=== PATIENT | male | born 1955 | race Caucasian/White ===

== ENCOUNTER 2018-07-08 08:56 | Emergency (ER) | payer OTHER ==
[~2018-07-08] VITALS: Ht 193 cm; Wt 95.2 kg
[~2018-07-08 08:56] MED LIST: AZIT250 PO; CITA20 PO; CLON1 PO; CLON2 PO; HYDACE10B PO; IBUP800 PO; METH10 PO; METH40 PO; NAPR500 PO
== END 2018-07-08 11:45 | disposition home or self-care (01) ==
LOC: ER 08:56 → MEDS 09:45 → ER 11:45
DX: Z00.00 Encounter for general adult medical examination without abnormal findings (principal); F17.210 Nicotine dependence, cigarettes, uncomplicated
CPT/HCPCS: 93005; 93010; 99283-25

== ENCOUNTER → 2019-07-07 | Outpatient (CLI) | payer OTHER | END | disposition home or self-care (01) | LOC: LAB SHORT 06:00 → OLS 06:00 | DX: A15.9 Respiratory tuberculosis unspecified (principal) | CPT/HCPCS: 87015; 87116; 87206 ==

== ENCOUNTER 2020-03-04 09:50 | Emergency (ER) | payer OTHER ==
[~2020-03-04] VITALS: Ht 193 cm; Wt 99.8 kg
[2020-03-04 11:45] LABS: BASOPHILS ABSOLUTE AUTO 0.08 K/mm3 (0.00-0.23); BASOPHILS PERCENT AUTO 1 % (0-2); EOSINOPHILS ABSOLUTE AUTO 0.44 K/mm3 (0.00-0.68); EOSINOPHILS PERCENT AUTO 5 % (0-6); Hematocrit 43.8 % (37.0-53.0); Hemoglobin 14.1 g/dL (13.5-17.5); IMMATURE GRAN ABSOLUTE AUTO 0.07 K/mm3 (0.00-0.10); IMMATURE GRAN PERCENT AUTO 1 % (0-1); LYMPHOCYTES ABSOLUTE AUTO 1.97 K/mm3 (0.84-5.20); LYMPHOCYTES PERCENT AUTO 20 % (21-46); MONOCYTES ABSOLUTE AUTO 0.85 K/mm3 (0.16-1.47); MONOCYTES PERCENT AUTO 9 % (4-13); Mean Corpuscular HGB 28.1 pg (26.0-34.0); Mean Corpuscular HGB Conc 32.2 g/dL (31.5-36.5); Mean Corpuscular Volume 87 fL (80-100); Mean Platelet Volume 9.8 fL (9.1-12.4); NEUTROPHILS ABSOLUTE AUTO 6.26 K/mm3 (1.96-9.15); NEUTROPHILS PERCENT AUTO 65 % (41-73); Platelet Count 232 K/mm3 (150-400); RDW Coefficient Variation 14.6 % (11.7-14.2); RDW Standard Deviation 46.9 fL (35.1-46.3); Red Blood Cell Count 5.01 M/mm3 (4.30-5.90); White Blood Cell Count 9.67 K/mm3 (4.00-11.30)
[2020-03-04 12:05] LABS: Alanine Aminotransfer (ALT/SGP 23 U/L (12-78); Albumin, Blood 3.3 g/dL (3.4-5.0); Albumin/Globulin Ratio 0.8 (0.8-1.8); Alk Phos 92 U/L (50-136); Anion Gap 2 mmol/L (6-16); Aspartate Aminotrans (AST/SGOT 18 U/L (12-37); Bilirubin, Total 0.6 mg/dL (0.1-1.0); Blood Urea Nitrogen 15 mg/dL (8-24); Bun/Creatinine Ratio 22.4 (12.0-20.0); CO2, Blood 31 mmol/L (21-32); Calcium, Blood 8.9 mg/dL (8.5-10.1); Chloride, Blood 105 mmol/L (98-108); Creatinine, Blood 0.67 mg/dL (0.60-1.20); Globulin, Blood 4.2 g/dL (2.2-4.0); Glomerular Filtration Rate >60 (60-); Glucose, Blood 101 mg/dL (70-99); Potassium, Blood 4.1 mmol/L (3.5-5.5); Sodium, Blood 138 mmol/L (136-145); Total Protein, Blood 7.5 g/dL (6.4-8.2)
[2020-03-04 12:28] LABS: Influenza A, PCR Negative (NEGATIVE); Influenza B, PCR Negative (NEGATIVE); Resp Syncytial Virus, PCR Negative (NEGATIVE); SARS-Cov-2 (COVID-19) PCR, MMC Negative (NEGATIVE)
== END 2020-03-04 13:01 | disposition home or self-care (01) ==
LOC: ER 09:50
PROVIDERS: Emergency Medicine
DX: R06.00 Dyspnea, unspecified (principal); J44.9 Chronic obstructive pulmonary disease, unspecified; Z20.828 Contact with and (suspected) exposure to other viral communicable diseases; Z79.891 Long term (current) use of opiate analgesic
CPT/HCPCS: 0241U; 71045; 80053; 85025; 99284-25

== ENCOUNTER 2021-02-21 22:05 | Inpatient (IN) | payer OTHER ==
[~2021-02-21] VITALS: Ht 193 cm; Wt 108.3 kg
[2021-02-21] MEDS ORDERED: ANORO ELLIPTA1 EACH INH (23:09)
[2021-02-21] MEDS ORDERED: ALBU90OI INH (23:09)
[2021-02-21] MEDS ORDERED: ATOR10 PO (23:10)
[2021-02-21] MEDS ORDERED: METF500 PO (23:10)
[2021-02-21 23:14] LABS: BASOPHILS ABSOLUTE AUTO 0.09 K/mm3 (0.00-0.23); BASOPHILS PERCENT AUTO 1 % (0-2); EOSINOPHILS ABSOLUTE AUTO 0.08 K/mm3 (0.00-0.68); EOSINOPHILS PERCENT AUTO 1 % (0-6); Hematocrit 41.6 % (37.0-53.0); Hemoglobin 13.5 g/dL (13.5-17.5); IMMATURE GRAN PERCENT AUTO 1 % (0-1); LYMPHOCYTES ABSOLUTE AUTO 1.69 K/mm3 (0.84-5.20); LYMPHOCYTES PERCENT AUTO 12 % (21-46); MONOCYTES ABSOLUTE AUTO 1.39 K/mm3 (0.16-1.47); MONOCYTES PERCENT AUTO 10 % (4-13); Mean Corpuscular HGB 28.3 pg (26.0-34.0); Mean Corpuscular HGB Conc 32.5 g/dL (31.5-36.5); Mean Corpuscular Volume 87 fL (80-100); Mean Platelet Volume 10.9 fL (9.1-12.4); NEUTROPHILS PERCENT AUTO 77 % (41-73); Platelet Count 269 K/mm3 (150-400); RDW Coefficient Variation 15.2 % (11.7-14.2); RDW Standard Deviation 48.6 fL (35.1-46.3); Red Blood Cell Count 4.77 M/mm3 (4.30-5.90); White Blood Cell Count 14.65 K/mm3 (4.00-11.30)
[2021-02-21 23:33] LABS: Alanine Aminotransfer (ALT/SGP 31 U/L (12-78); Albumin, Blood 3.4 g/dL (3.4-5.0); Albumin/Globulin Ratio 0.8 (0.8-1.8); Alk Phos 81 U/L (50-136); Anion Gap 5 mmol/L (6-16); Aspartate Aminotrans (AST/SGOT 20 U/L (12-37); Blood Urea Nitrogen 21 mg/dL (8-24); Bun/Creatinine Ratio 24.2 (12.0-20.0); CO2, Blood 30 mmol/L (21-32); Calcium, Blood 10.2 mg/dL (8.5-10.1); Chloride, Blood 100 mmol/L (98-108); Creatinine, Blood 0.87 mg/dL (0.60-1.20); Globulin, Blood 4.3 g/dL (2.2-4.0); Glomerular Filtration Rate >60 (60-); Glucose, Blood 120 mg/dL (70-99); Potassium, Blood 4.9 mmol/L (3.5-5.5); Sodium, Blood 135 mmol/L (136-145); Total Protein, Blood 7.7 g/dL (6.4-8.2)
[2021-02-21 23:55] LABS: Magnesium, Blood 1.7 mg/dL (1.6-2.4); Troponin I <0.015 ng/mL (0.000-0.040)
[2021-02-22 01:17] LABS: Influenza A, PCR NEGATIVE (NEGATIVE); Influenza B, PCR NEGATIVE (NEGATIVE); Resp Syncytial Virus, PCR NEGATIVE (NEGATIVE); SARS-Cov-2 (COVID-19) PCR, MMC NEGATIVE (NEGATIVE)
[2021-02-22 01:25] LABS: Source, Urine Clean Catch
[2021-02-22 01:31] LABS: Bilirubin, Urine Neg (Neg); Blood, Urine Neg (Neg); Glucose Qualitative, Urine Neg (Neg); Ketones, Urine 1+ (Neg); Leukocyte Esterase, Urine Neg (Neg); Nitrite, Urine Neg (Neg); Protein, Urine 1+ (Neg); Urobilinogen, Urine NORM (Normal)
[2021-02-22 01:32] LABS: Appearance, Urine Clear (Clear); Color, Urine Yellow (P-Yellow)
--- NOTE | 2021-02-22 07:10 | NUR ---
SHIFT SUMMARY PT ALERT AND ORIENTED X4. ON 6L NC, SATS OVER 88%. HR AFIB 90'S. BP STABLE. PT C/O 10/13 CHRONIC BACK PAIN. PT ROCIO CHEST PAIN. FLU SHOT GIVEN. RIGHT AND LEFT IV ACCESS SALINE LOCKED. INDEPENDENT FOR ADLS. IN BED WATCHING TV WITH CALL ALARM AT SIDE
--- NOTE | 2021-02-22 14:21 | NUR ---
HELPFUL AT BEDSIDE, AND PATIENT EDUCATED ON THE EFFECTS OF SOLUMEDROL AND ALBUTEROL, REPORTED TO DR JOYCE MAYER WISHES OF ONLY WANTING THE ANORO INHALER, PATIENT ALREADY ON ALBUTEROL TX
[2021-02-22 15:14] LABS: U Methadone Screen DETECTED; U Methamphetamine Screen DETECTED
[2021-02-22 15:15] LABS: U Amphetamine Screen DETECTED; U Barbituate Screen Not Detected; U Benzodiazapine Screen Not Detected; U Buprenorphine Screen Not Detected; U Cannabinoids Screen Not Detected; U Cocaine Screen Not Detected; U Opiates Screen DETECTED; U Oxycodone Screen Not Detected; U Phencyclidine Screen Not Detected; U Propoxyphene Screen Not Detected
--- NOTE | 2021-02-22 18:21 | NUR ---
MAKES NEEDS KNOWN, BECOMES ANXIOUS, DEMANDING, AND IRRITABLE. pATIENT WANTED METHADONE DOSE INCREASED TODAY, NO INCREASES MADE PER DR CARL, MEDICATED WITH ATIVAN AND LASIX, PATIENT IN THE ADAPT METHADONE PROGRAM, UDS SENT RESULTS POSITIVE, VS REVIEWED, BED ALARM ON, NURSING SUPERVISORS AWARE, PATIENT THREATENED TO LEAVE IF HE WAS NOT GIVEN A HIGHER DOSE OF METHADONE, PATIENT AGREED TO STAY IF HE HAD SOMETHING FOR ANXIETY, CALL LIGHT WITH IN REACH, WILL RELAY TO PM RN
[2021-02-23 03:45] LABS: BASOPHILS ABSOLUTE AUTO 0.04 K/mm3 (0.00-0.23); BASOPHILS PERCENT AUTO 0 % (0-2); EOSINOPHILS PERCENT AUTO 0 % (0-6); Hematocrit 41.1 % (37.0-53.0); Hemoglobin 13.2 g/dL (13.5-17.5); IMMATURE GRAN ABSOLUTE AUTO 0.17 K/mm3 (0.00-0.10); IMMATURE GRAN PERCENT AUTO 1 % (0-1); LYMPHOCYTES ABSOLUTE AUTO 2.22 K/mm3 (0.84-5.20); LYMPHOCYTES PERCENT AUTO 11 % (21-46); MONOCYTES ABSOLUTE AUTO 1.03 K/mm3 (0.16-1.47); MONOCYTES PERCENT AUTO 5 % (4-13); Mean Corpuscular HGB Conc 32.1 g/dL (31.5-36.5); Mean Corpuscular Volume 87 fL (80-100); Mean Platelet Volume 11.1 fL (9.1-12.4); NEUTROPHILS ABSOLUTE AUTO 16.26 K/mm3 (1.96-9.15); NEUTROPHILS PERCENT AUTO 82 % (41-73); Platelet Count 250 K/mm3 (150-400); RDW Coefficient Variation 15.2 % (11.7-14.2); RDW Standard Deviation 48.6 fL (35.1-46.3); Red Blood Cell Count 4.72 M/mm3 (4.30-5.90); White Blood Cell Count 19.72 K/mm3 (4.00-11.30)
[2021-02-23 03:53] LABS: Base Excess Venous 2.2 mmol/L; Bicarbonate Venous 24.5 mmol/L (24.0-30.0); PCO2 Venous 52.2 mmHg (38-42); PO2 Venous 33.7 mmHg (38-42); pH Blood Venous 7.34 (7.34-7.37)
[2021-02-23 03:59] LABS: Albumin, Blood 3.3 g/dL (3.4-5.0); Anion Gap 8 mmol/L (6-16); Blood Urea Nitrogen 42 mg/dL (8-24); CO2, Blood 28 mmol/L (21-32); Calcium, Blood 9.3 mg/dL (8.5-10.1); Chloride, Blood 99 mmol/L (98-108); Glomerular Filtration Rate >60 (60-); Glucose, Blood 150 mg/dL (70-99); Phosphorus, Blood 5.1 mg/dL (2.5-4.9); Potassium, Blood 4.6 mmol/L (3.5-5.5); Sodium, Blood 135 mmol/L (136-145)
--- NOTE | 2021-02-23 05:49 | NUR ---
SHIFT SUMMARY ASSUMED CARE OF PT AT 1900. PT IS A/OX4. HEART SOUNDS IRREGULAR, PT IN AFIB. LUNG SOUNDS HAVE EXPIRATORY WHEEZES AND ARE COARSE. SATURATIONS REMAINED ABBOVE 90% ON 3L NC. PT USED THE URINAL INDEPENDENTLY DURING THE NIGHT. PT STATED THAT HE NEEDED TO GET A CPAP SO THAT HE COULD SLEEP. HE SAID TAHT HE WAS SUPPOSED TO GET ON 5 YEARS AGO BUT THE DOCTOR DIDNT FOLLOW BACK AND MEDICAID WOULDNT PAY FOR IT. HOSPITALIST CHARLES WAS NOTFIED AND DENIED PT REQUEST. PT WAS RESTLESS T/O THE NIGHT. PT DID NOT SLEEP AT ALL. HE SAT ON THE SIDE OF THE BED AND COUGHED. PT RECEIVED BREATHING TREATMENTS WITH LITTLE SUCCESS. PT AT ONE POINT STATED THAT HE THOUGHT HE WAS HAVING A STROKE. PT RECEIVED ATIVAN IN ATTEMPT TO HELP HIM CALM DOWN BUT WITH NO EFFECT. CALL LIGHT IN REACH, BED IN LOWEST POSITION.
--- NOTE | 2021-02-23 12:08 | NUR ---
AM UPDATE: CALLED DR. CARL RE: [facility] CBG ORDER. PATIENT'S CBGS HAVE BEEN <150 AND PATIENT STATES HE DOESN'T USE INSULIN AT HOME. NO DM HX DR. CARL WILL REVIEW. RT PUT PATIENT ON BIPAP AND HE IS SLEEPING WELL AT THE MOMENT.
--- NOTE | 2021-02-23 16:37 | NUR ---
NICODERM ORDER: PATIENT WAS REQUESTING A SMOKE BREAK AT 1515. HE IS ON OXYGEN AND BIPAP. CALLED DR. CARL TO REQUEST NICODERM PATCH. RECEIVED ORDER FOR 14 MG DAILY.
--- NOTE | 2021-02-23 17:42 | NUR ---
SHIFT SUMMARY: PATIENT PUT ON BIPAP INTERMITTENTLY TODAY HE CONTINUES TO HAVE PERIODS OF APNEA. RT VISITED MULTIPLE TIMES THROUGHOUT THE DAY TO EVALUATE. NO ACUTE CHANGES THIS SHIFT. DENTURES WERE LOST FOR A COUPLE HOURS AND WERE FOUND BY NUTRITIONAL SERVICES AND RETURNED TO PATIENT. PT WILL WORK WITH PATIENT TOMORROW. PATIENT SLEPT MOST OF THE AFTERNOON. HE WAS PLEASANT T/O SHIFT WITH THIS NURSE BUT DID GET AGGRESSIVE WITH CHARGE AND TECH EARLY AFTERNOON. WILL REPORT TO MELVINA JONES.
--- NOTE | 2021-02-23 19:50 | NUR ---
PT ALERT AND ORIENTED. DENIES CHEST PAIN/PRESSURE. VITALS ARE STABLE AND IS ON BIPAP WITH SETTINGS OF 16 AND SATS OF 97%. PT IS REPORTING FEELING ANXIOUS AND BEING FRUSTRATED. PT REPORTS WANTING TO GET SOME SLEEP TONIGHT BECAUSE HE HAS NOT BEEN ABLLE TO GET ANY SLEEP. USING URINAL AT BEDSIDE. CALL LIGHT IS WITHIN REACH. WILL CONTINUE TO MONITOR.
[2021-02-24 04:29] LABS: BASOPHILS ABSOLUTE AUTO 0.03 K/mm3 (0.00-0.23); BASOPHILS PERCENT AUTO 0 % (0-2); EOSINOPHILS ABSOLUTE AUTO 0.01 K/mm3 (0.00-0.68); EOSINOPHILS PERCENT AUTO 0 % (0-6); Hematocrit 41.7 % (37.0-53.0); Hemoglobin 13.4 g/dL (13.5-17.5); IMMATURE GRAN ABSOLUTE AUTO 0.17 K/mm3 (0.00-0.10); IMMATURE GRAN PERCENT AUTO 1 % (0-1); LYMPHOCYTES ABSOLUTE AUTO 2.14 K/mm3 (0.84-5.20); LYMPHOCYTES PERCENT AUTO 12 % (21-46); MONOCYTES ABSOLUTE AUTO 1.33 K/mm3 (0.16-1.47); MONOCYTES PERCENT AUTO 7 % (4-13); Mean Corpuscular HGB 28.3 pg (26.0-34.0); Mean Corpuscular HGB Conc 32.1 g/dL (31.5-36.5); Mean Corpuscular Volume 88 fL (80-100); Mean Platelet Volume 11.3 fL (9.1-12.4); NEUTROPHILS ABSOLUTE AUTO 14.48 K/mm3 (1.96-9.15); NEUTROPHILS PERCENT AUTO 80 % (41-73); Platelet Count 226 K/mm3 (150-400); RDW Coefficient Variation 15.3 % (11.7-14.2); RDW Standard Deviation 49.1 fL (35.1-46.3); Red Blood Cell Count 4.74 M/mm3 (4.30-5.90); White Blood Cell Count 18.16 K/mm3 (4.00-11.30)
[2021-02-24 04:47] LABS: Albumin, Blood 3.2 g/dL (3.4-5.0); Anion Gap 9 mmol/L (6-16); Blood Urea Nitrogen 66 mg/dL (8-24); CO2, Blood 28 mmol/L (21-32); Chloride, Blood 97 mmol/L (98-108); Glomerular Filtration Rate >60 (60-); Glucose, Blood 135 mg/dL (70-99); Phosphorus, Blood 7.4 mg/dL (2.5-4.9); Potassium, Blood 5.3 mmol/L (3.5-5.5); Sodium, Blood 134 mmol/L (136-145)
--- NOTE | 2021-02-24 06:54 | NUR ---
SHIFT SUMMARY PT IS ALERT AND PRIENTED X4. PT'S VITALS ARE STABLE AND IS ON BIPAP WITH A 4L BLEED IN OR NC 3L. PT HAS BEEN VERY ANXIOUS AND HAS BEEN MEDICATED PER EMAR. REPORTS HAVING PANIC ATTACKS. PT HAS BEEN ABLE TO USE URINAL AT BEDSIDE AND IS A SBA TO BSC. CALL LIGHT IS WITHIN REACH.
[2021-02-24 13:28] LABS: Base Excess Venous 1.2 mmol/L; Bicarbonate Venous 24.8 mmol/L (24.0-30.0); PCO2 Venous 48.1 mmHg (38-42); PO2 Venous 85.4 mmHg (38-42); pH Blood Venous 7.35 (7.34-7.37)
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
--- NOTE | 2021-02-25 05:19 | NUR ---
SHIFT SUMMARY A/O 2-3, FORGETFUL AND ANXIOUS AT TIMES. USE OF BIPAP T/O NIGHT. CURRENTLY ON 5L VIA NC WITH SATS GREATER THAN 92. TELE AFIB AVERAGE IN THE 80S. SBA WITH TRANSFERS. USES URINAL INDEPENDENTLY. VSS, NO ACUTE CHANGES AT THIS TIME. BED IN LOWEST POSITION WITH CALL LIGHT IN REACH. WILL CONTINUE TO MONITOR AND REPORT TO ONCOMING RN.
[2021-02-25 05:22] LABS: BASOPHILS ABSOLUTE AUTO 0.02 K/mm3 (0.00-0.23); BASOPHILS PERCENT AUTO 0 % (0-2); EOSINOPHILS PERCENT AUTO 0 % (0-6); Hematocrit 41.4 % (37.0-53.0); Hemoglobin 13.3 g/dL (13.5-17.5); IMMATURE GRAN ABSOLUTE AUTO 0.25 K/mm3 (0.00-0.10); IMMATURE GRAN PERCENT AUTO 2 % (0-1); LYMPHOCYTES ABSOLUTE AUTO 2.26 K/mm3 (0.84-5.20); LYMPHOCYTES PERCENT AUTO 15 % (21-46); MONOCYTES ABSOLUTE AUTO 1.12 K/mm3 (0.16-1.47); MONOCYTES PERCENT AUTO 7 % (4-13); Mean Corpuscular HGB 28.4 pg (26.0-34.0); Mean Corpuscular HGB Conc 32.1 g/dL (31.5-36.5); Mean Corpuscular Volume 89 fL (80-100); Mean Platelet Volume 11.9 fL (9.1-12.4); NEUTROPHILS ABSOLUTE AUTO 11.94 K/mm3 (1.96-9.15); NEUTROPHILS PERCENT AUTO 77 % (41-73); NRBC ABSOLUTE 0.04 K/mm3 (0.00-0.02); NRBC Auto 0.3 /100 WBC (0.0-0.2); Platelet Count 194 K/mm3 (150-400); RDW Coefficient Variation 15.3 % (11.7-14.2); RDW Standard Deviation 48.6 fL (35.1-46.3); Red Blood Cell Count 4.68 M/mm3 (4.30-5.90); White Blood Cell Count 15.59 K/mm3 (4.00-11.30)
[2021-02-25 05:54] LABS: Albumin, Blood 3.3 g/dL (3.4-5.0); Anion Gap 9 mmol/L (6-16); Blood Urea Nitrogen 73 mg/dL (8-24); Bun/Creatinine Ratio 73.1 (12.0-20.0); CO2, Blood 29 mmol/L (21-32); Calcium, Blood 8.8 mg/dL (8.5-10.1); Chloride, Blood 96 mmol/L (98-108); Glomerular Filtration Rate >60 (60-); Glucose, Blood 146 mg/dL (70-99); Phosphorus, Blood 4.8 mg/dL (2.5-4.9); Potassium, Blood 4.9 mmol/L (3.5-5.5); Sodium, Blood 134 mmol/L (136-145)
--- NOTE | 2021-02-25 19:19 | NUR ---
Alert and oriented x2 with some confusion. Restless and anxious, he was redirected multiple times. Denies any pain, dizziness , headache , shortness of breath and chest pain. Ativan was given for anxiety with some relief. Vital signs are stable. Was put on restraints for restlessness, pulling out tele monitor, and confusion. Pt is moved to room 345 for video monitoring. Continue on tele monitor , afib at 83. Bed alarm and call light within reach. Continue to monitor.
--- NOTE | 2021-02-26 04:59 | NUR ---
SHIFT SUMMARY LETHARGIC MOST OF SHIFT, REMOVING O2 NC WITH DESATS IN THE LOW 80S. BILATERAL FEET APPEAR MOTTLED AND COOL. LUNGS COARSE T/O WITH CRACKLES TO BILATERAL BASES. PT MUCH MORE ALERT THIS AM COMPARED TO THE REST OF THE SHIFT. CURRENTLY ON 5L NC WITH CONT BIOX IN PLACE. VSS, BED IN LOWEST POSITION WITH CALL LIGHT IN REACH. WILL CONTINUE TO MONITOR AND REPORT TO ONCOMING RN.
[2021-02-26 05:09] LABS: Hematocrit 41.5 % (37.0-53.0); Hemoglobin 13.6 g/dL (13.5-17.5); Mean Corpuscular HGB 28.1 pg (26.0-34.0); Mean Corpuscular HGB Conc 32.8 g/dL (31.5-36.5); Mean Corpuscular Volume 86 fL (80-100); Mean Platelet Volume 11.7 fL (9.1-12.4); NRBC ABSOLUTE 0.07 K/mm3 (0.00-0.02); NRBC Auto 0.4 /100 WBC (0.0-0.2); Platelet Count 176 K/mm3 (150-400); RDW Coefficient Variation 15.3 % (11.7-14.2); RDW Standard Deviation 47.1 fL (35.1-46.3); Red Blood Cell Count 4.84 M/mm3 (4.30-5.90); White Blood Cell Count 15.62 K/mm3 (4.00-11.30)
[2021-02-26 05:13] LABS: PCO2 Arterial 49.5 mmHg (35-45); PO2 Arterial 55.4 mmHg (80-100); pH Blood Arterial 7.42 (7.35-7.45)
[2021-02-26 06:22] LABS: Albumin, Blood 3.2 g/dL (3.4-5.0); Anion Gap 9 mmol/L (6-16); Blood Urea Nitrogen 72 mg/dL (8-24); Bun/Creatinine Ratio 72.4 (12.0-20.0); CO2, Blood 30 mmol/L (21-32); Calcium, Blood 8.6 mg/dL (8.5-10.1); Chloride, Blood 99 mmol/L (98-108); Glomerular Filtration Rate >60 (60-); Glucose, Blood 98 mg/dL (70-99); Phosphorus, Blood 4.3 mg/dL (2.5-4.9); Potassium, Blood 4.5 mmol/L (3.5-5.5); Sodium, Blood 138 mmol/L (136-145)
--- NOTE | 2021-02-26 13:50 | NUR ---
Echocardiogram completed.
--- NOTE | 2021-02-26 16:40 | NUR ---
PT HAS HAD NO ACUTE CHANGES. PT AOX3 WITH SOME CONFUSION. PT IS UNSTEADY,WEAK AND IMPULSIVE. POSE IS IN PLACE TO PREVENT INJURY AND BED ALARM ON. PT DENIES PAIN AND HAS CALL LIGHT WITHIN REACH. PT WILL NOT CALL IF HE NEEDS HELP TO VOID AND WILL URINATE IN BED WITH URGENCY. PT MAINTAINING O2 ON 6L. NO DISTRESS NOTED AT THIS TIME WILL CONTINUE TO MONITOR.
--- NOTE | 2021-02-27 04:40 | NUR ---
SHIFT SUMMARY A/OX2, IMPULSIVE AT TIMES. CURRENTLY ON 5L VIA NC WITH CONT. BIOX WITH SATS GREATER THAN 92. VSS, NO ACUTE CHANGES AT THIS TIME. BED IN LOWEST POSITION WITH CALL LIGHT IN REACH. WILL CONTINUE TO MONITOR AND REPORT TO ONCOMING RN.
[2021-02-27] MEDS ORDERED: METO25 PO (17:36)
[2021-02-27] MEDS ORDERED: XARELTO20 M1 PO (17:36)
[2021-02-27] MEDS ORDERED: FURO40 PO (17:36)
== END 2021-02-27 07:00 | disposition left against medical advice (07) | DRG 291 ==
LOC: ER 22:05 → PCU 02-22 02:57 → MEDS 02-22 02:57 → PCU 02-22 04:31 → MEDS 02-24 18:57
PROVIDERS: Family Medicine; Internal Medicine; Physician Assistant; Student in an Organized Health Care Education/Training Program; ADMIT Internal Medicine
PROC: 5A09457 Assistance with Respiratory Ventilation, 24-96 Consecutive Hours, Continuous Positive Airway Pressure (ICD-10-PCS; principal; 2021-02-22)
PROC: 3E02340 Introduction of Influenza Vaccine into Muscle, Percutaneous Approach (ICD-10-PCS; 2021-02-22)
PROC: 5A0935A Assistance with Respiratory Ventilation, Less than 24 Consecutive Hours, High Flow/Velocity Cannula (ICD-10-PCS; 2021-02-26)
DX: I50.21 Acute systolic (congestive) heart failure (principal); G92.8 Other toxic encephalopathy; J96.02 Acute respiratory failure with hypercapnia; J96.01 Acute respiratory failure with hypoxia; E87.1 Hypo-osmolality and hyponatremia; Z66 Do not resuscitate; I27.20 Pulmonary hypertension, unspecified; Z23 Encounter for immunization; I08.1 Rheumatic disorders of both mitral and tricuspid valves; G89.29 Other chronic pain; F17.210 Nicotine dependence, cigarettes, uncomplicated; Z79.899 Other long term (current) drug therapy; Z79.84 Long term (current) use of oral hypoglycemic drugs; J44.9 Chronic obstructive pulmonary disease, unspecified; G47.33 Obstructive sleep apnea (adult) (pediatric); R73.03 Prediabetes; E83.52 Hypercalcemia; E66.01 Morbid (severe) obesity due to excess calories; Z68.30 Body mass index [BMI] 30.0-30.9, adult; E83.39 Other disorders of phosphorus metabolism; Z20.822 Contact with and (suspected) exposure to COVID-19; F15.10 Other stimulant abuse, uncomplicated
CPT/HCPCS: 0241U; 36415; 36600; 71045; 74177; 80053; 80069; 82330; 82803; 82947; 83036; 83690; 83735; 83880; 84145; 84443; 84484; 85025; 85027; 85379; 90686; 93005; 93010; 93306; 94640; 94660; 94760; 94762; 96365-59; 96366; 96375; 97162; 97166; 97530; 97535; 99285-25; A9270; J1650; J1940; J2060; J2930; J3475; J7512; Q9967

== ENCOUNTER 2021-02-27 12:28 | Emergency (ER) | payer OTHER ==
[~2021-02-27] VITALS: Ht 193 cm; Wt 112.0 kg
[~2021-02-27 12:28] MED LIST changes: +ALBU90OI INH; +ANORO ELLIPTA1 EACH INH; +ATOR10 PO; +METF500 PO
[2021-02-27 17:02] LABS: PCO2 Arterial 58.4 mmHg (35-45); PO2 Arterial 61.8 mmHg (80-100); pH Blood Arterial 7.45 (7.35-7.45)
[2021-02-27] MEDS ORDERED: XARELTO20 M1 PO (17:36)
[2021-02-27] MEDS ORDERED: METO25 PO (17:36)
[2021-02-27] MEDS ORDERED: FURO40 PO (17:36)
== END 2021-02-27 18:11 | disposition home or self-care (01) ==
LOC: ER 12:28
PROVIDERS: Internal Medicine
DX: J44.1 Chronic obstructive pulmonary disease with (acute) exacerbation (principal); R09.02 Hypoxemia; I48.91 Unspecified atrial fibrillation; G47.33 Obstructive sleep apnea (adult) (pediatric); Z79.84 Long term (current) use of oral hypoglycemic drugs; Z79.899 Other long term (current) drug therapy; F17.210 Nicotine dependence, cigarettes, uncomplicated
CPT/HCPCS: 36600; 82803; A9270

== ENCOUNTER 2022-04-26 10:13 | Emergency (ER) | payer OTHER ==
[~2022-04-26] VITALS: Ht 193 cm; Wt 113.4 kg
[~2022-04-26 10:13] MED LIST changes: +FURO40 PO; +METO25 PO; +XARELTO20 M1 PO
[2022-04-26 11:12] LABS: BASOPHILS ABSOLUTE AUTO 0.13 K/mm3 (0.00-0.23); BASOPHILS PERCENT AUTO 1 % (0-2); EOSINOPHILS ABSOLUTE AUTO 0.48 K/mm3 (0.00-0.68); EOSINOPHILS PERCENT AUTO 2 % (0-6); Hematocrit 40.4 % (37.0-53.0); Hemoglobin 13.3 g/dL (13.5-17.5); Mean Corpuscular HGB 29.8 pg (26.0-34.0); Mean Corpuscular HGB Conc 32.9 g/dL (31.5-36.5); Mean Corpuscular Volume 90 fL (80-100); Mean Platelet Volume 10.4 fL (9.1-12.4); Platelet Count 261 K/mm3 (150-400); RDW Coefficient Variation 13.9 % (11.7-14.2); RDW Standard Deviation 46.2 fL (35.1-46.3); Red Blood Cell Count 4.47 M/mm3 (4.30-5.90); White Blood Cell Count 20.27 K/mm3 (4.00-11.30)
[2022-04-26 11:16] LABS: IMMATURE GRAN ABSOLUTE AUTO 0.15 K/mm3 (0.00-0.10); IMMATURE GRAN PERCENT AUTO 1 % (0-1); LYMPHOCYTES ABSOLUTE AUTO 4.64 K/mm3 (0.84-5.20); LYMPHOCYTES PERCENT AUTO 23 % (21-46); MONOCYTES ABSOLUTE AUTO 1.36 K/mm3 (0.16-1.47); MONOCYTES PERCENT AUTO 7 % (4-13); NEUTROPHILS ABSOLUTE AUTO 13.51 K/mm3 (1.96-9.15); NEUTROPHILS PERCENT AUTO 67 % (41-73)
[2022-04-26] MEDS ORDERED: QUET25 PO (11:16)
[2022-04-26] MEDS ORDERED: QUETIAPINE FUMA50 M2 PO (11:17)
[2022-04-26] MEDS ORDERED: LISI5 PO (11:18)
[2022-04-26] MEDS ORDERED: METOPROLOL TART25 MG PO (11:18)
[2022-04-26 11:37] LABS: Albumin, Blood 3.6 g/dL (3.4-5.0); Albumin/Globulin Ratio 0.9 (0.8-1.8); Bilirubin, Total 0.7 mg/dL (0.1-1.0); Bun/Creatinine Ratio 23.5 (12.0-20.0); Calcium, Blood 9.1 mg/dL (8.5-10.1); Creatinine, Blood 0.94 mg/dL (0.60-1.20); Globulin, Blood 4.2 g/dL (2.2-4.0); Potassium, Blood 4.4 mmol/L (3.5-5.5); Total Protein, Blood 7.8 g/dL (6.4-8.2)
[2022-04-26] MEDS ORDERED: CEFP200 PO (12:28)
[2022-04-26] MEDS ORDERED: AZIT250 PO (12:28)
== END 2022-04-26 14:50 | disposition left against medical advice (07) ==
LOC: ER 10:13
PROVIDERS: Student in an Organized Health Care Education/Training Program
DX: A41.9 Sepsis, unspecified organism (principal); J18.9 Pneumonia, unspecified organism; I48.91 Unspecified atrial fibrillation; G47.33 Obstructive sleep apnea (adult) (pediatric); J44.9 Chronic obstructive pulmonary disease, unspecified; F17.210 Nicotine dependence, cigarettes, uncomplicated; Z79.899 Other long term (current) drug therapy; Z79.84 Long term (current) use of oral hypoglycemic drugs
CPT/HCPCS: 36415; 71046; 80053; 83605; 84484; 85025; 93005; 93010; J0456; J0696; J7050

== ENCOUNTER → 2022-07-23 | Outpatient (CLI) | payer OTHER ==
[~2022-07-23] MED LIST changes: +CEFP200 PO; +LISI5 PO; +METOPROLOL TART25 MG PO; +QUET25 PO; +QUETIAPINE FUMA50 M2 PO
[2022-07-23 13:30] LABS: BASOPHILS ABSOLUTE AUTO 0.11 K/mm3 (0.00-0.23); BASOPHILS PERCENT AUTO 1 % (0-2); EOSINOPHILS ABSOLUTE AUTO 0.56 K/mm3 (0.00-0.68); EOSINOPHILS PERCENT AUTO 4 % (0-6); Hematocrit 35.8 % (37.0-53.0); Hemoglobin 11.4 g/dL (13.5-17.5); IMMATURE GRAN ABSOLUTE AUTO 0.14 K/mm3 (0.00-0.10); IMMATURE GRAN PERCENT AUTO 1 % (0-1); LYMPHOCYTES ABSOLUTE AUTO 5.57 K/mm3 (0.84-5.20); LYMPHOCYTES PERCENT AUTO 39 % (21-46); MONOCYTES ABSOLUTE AUTO 1.25 K/mm3 (0.16-1.47); MONOCYTES PERCENT AUTO 9 % (4-13); Mean Corpuscular HGB 29.5 pg (26.0-34.0); Mean Corpuscular HGB Conc 31.8 g/dL (31.5-36.5); Mean Corpuscular Volume 93 fL (80-100); Mean Platelet Volume 10.2 fL (9.1-12.4); NEUTROPHILS ABSOLUTE AUTO 6.65 K/mm3 (1.96-9.15); NEUTROPHILS PERCENT AUTO 47 % (41-73); Platelet Count 222 K/mm3 (150-400); RDW Coefficient Variation 14.1 % (11.7-14.2); RDW Standard Deviation 47.8 fL (35.1-46.3); Red Blood Cell Count 3.86 M/mm3 (4.30-5.90); White Blood Cell Count 14.28 K/mm3 (4.00-11.30)
[2022-07-23 14:13] LABS: Albumin, Blood 3.3 g/dL (3.4-5.0); Albumin/Globulin Ratio 0.9 (0.8-1.8); Bilirubin, Total 0.5 mg/dL (0.1-1.0); Bun/Creatinine Ratio 25.1 (12.0-20.0); Creatinine, Blood 0.84 mg/dL (0.60-1.20); Globulin, Blood 3.8 g/dL (2.2-4.0); Magnesium, Blood 1.9 mg/dL (1.6-2.4); Potassium, Blood 4.7 mmol/L (3.5-5.5); Total Protein, Blood 7.1 g/dL (6.4-8.2)
== END | disposition home or self-care (01) ==
LOC: LAB SHORT 12:53 → LAB 12:53
PROVIDERS: Nurse Practitioner Family
DX: R22.43 Localized swelling, mass and lump, lower limb, bilateral (principal); R41.0 Disorientation, unspecified
CPT/HCPCS: 80053; 83735; 85025

== ENCOUNTER → 2023-08-01 | Outpatient (CLI) | payer OTHER ==
[2023-08-05 09:39] LABS: Stool Occult Bld Immuno 1 Positive (NEGATIVE)
== END ==
LOC: LAB SHORT 14:45 → LAB 14:45
PROVIDERS: Physician Assistant
DX: Z12.11 Encounter for screening for malignant neoplasm of colon (principal); Z12.12 Encounter for screening for malignant neoplasm of rectum
CPT/HCPCS: G0328